=== PATIENT | male | born 1935 | race Caucasian/White ===

== ENCOUNTER 2016-08-02 12:43 | Emergency (ER) | payer MEDICARE, OTHER ==
[2016-08-02 13:31] VITALS: BP 140/76
--- NOTE | 2016-08-02 14:47 | UC ---
Respiratory Complaint HPI - HPI Summary HPI Summary: productive cough for about 10d, seems to be getting worse. Can't lie flat at night, feels like "lungs fill up". Intermittent fevers. Mild deep ST. No sinus congestion. Good appetite. No vomiting or diarrhea - History of Current Complaint Chief Complaint: UC Stated Complaint: CHEST CONGESTION Time Seen by Provider: 08/02/16 14:28 Hx Obtained From: Patient, Family/Senior Game Developer - Onset/Duration: Gradual Onset, Lasting Days - 10 Timing: Constant Severity Initially: Mild Severity Currently: Moderate Character: Sputum Description: - yellow/green Aggravating Factors: Recumbent Position Alleviating Factors: Nothing Associated Signs And Symptoms: Positive: Dyspnea, Fever, Chills, URI, Nasal Congestion, Hoarseness - Risk Factors Pulmonary Embolism Risk Factors: Negative Cardiac Risk Factors: Hypertension Pseudomonas Risk Factors: Negative Tuberculosis Risk Factors: Negative - Allergies/Home Medications Allergies/Adverse Reactions: Allergies Allergy/AdvReac Type Severity Reaction Status Date / Time Penicillins Allergy Unknown Unknown Verified 06/09/14 16:21 Reaction Details Home Medications: Home Medications Albuterol HFA INHALER* [Ventolin HFA Inhaler*] 1 - 2 puff INH Q6H PRN 08/02/16 [ History Confirmed 08/02/16] Aspirin [Aspirin Adult Low Dose] 81 mg PO DAILY 08/02/16 [History Confirmed ] Famotidine [Pepcid] 20 mg PO DAILY 08/02/16 [History Confirmed 08/02/16] PMH/Surg Hx/FS Hx/Imm Hx Cardiovascular History Of: Reports: Cardiac Disorders - pacemaker, Hypertension - Surgical History Surgical History: Yes Surgery Procedure, Year, and Place: back surgery. right shoulder surgery. bilateral knee and hip surgery - Family History Known Family History: Positive: Hypertension - Social History Occupation: Retired Lives: With Family Alcohol Use: Occasionally Alcohol Amount: 3 beers daily Substance Use Type: None Smoking Status (MU): Former Smoker When Did the Patient Quit Smoking/Using Tobacco: 16 years ago - Immunization History Most Recent Tetanus Shot: unknown Review of Systems Constitutional: Negative Skin: Negative Eyes: Negative ENT: Sore Throat Respiratory: Cough Cardiovascular: Negative Gastrointestinal: Negative Genitourinary: Negative Motor: Negative Neurovascular: Negative Musculoskeletal: Myalgia Neurological: Weakness Psychological: Negative All Other Systems Reviewed And Are Negative: Yes Physical Exam Triage Information Reviewed: Yes Appearance: Well-Appearing, No Pain Distress, Well-Nourished Vital Signs: Initial Vital Signs Temp 98.3 F 08/02/16 13:24 Pulse 87 08/02/16 13:24 Resp 16 08/02/16 13:24 BP 140/76 08/02/16 13:24 Pulse Ox 98 08/02/16 13:24 Vital Signs Reviewed: Yes Eye Exam: Normal Eyes: Positive: Conjunctiva Clear ENT: Positive: Pharynx normal, TMs normal, Muffled/hoarse voice - hoarse Neck exam: Normal Neck: Positive: Supple Respiratory Exam: Normal Cardiovascular Exam: Normal Musculoskeletal Exam: Normal Neurological Exam: Normal Psychological Exam: Normal Skin Exam: Normal UC Diagnostic Evaluation - Laboratory O2 Sat by Pulse Oximetry: 98 Respiratory Course/Dx - Differential Dx/Diagnosis Differential Diagnosis/HQI/PQRI: Bronchitis, Lower Resp Infection, Sinusitis Provider Diagnoses: bronchitis Discharge - Discharge Plan Condition: Stable Disposition: HOME Prescriptions: Azithromycin TAB* [Zithromax TAB (Z-BRYAN) 250 mg #6 tabs] 2 tab PO .TODAY, THEN 1 DAILY #1 bryan Guaifenesin-Codeine [Cheratussin AC] 1 - 2 teasp PO BEDTIME PRN #100 ml MDD 30ml PRN Reason: Cough Patient Education Materials: Upper Respiratory Infection (ED) Referrals: Beatriz Bryson [Primary Care Provider] -
== END 2016-08-02 14:54 | disposition home or self-care (01) ==
LOC: UCCORT 12:43
DX: J40 Bronchitis, not specified as acute or chronic (principal); Z88.0 Allergy status to penicillin; Z95.0 Presence of cardiac pacemaker; I10 Essential (primary) hypertension; Z79.82 Long term (current) use of aspirin; Z87.891 Personal history of nicotine dependence
CPT/HCPCS: 99212; G0463

== ENCOUNTER 2016-08-17 12:08 | Emergency (ER) | payer OTHER ==
[2016-08-17 13:41] VITALS: BP 162/85
--- NOTE | 2016-08-17 15:34 | UC ---
Respiratory Complaint HPI - HPI Summary HPI Summary: here on 08/03 with cough. Given Z-pack. Didn't help much, maybe a little. STill coughing. Coughs to the point of gagging. Hard to lie flat at night due to coughing. No fever. No vomiting. No ST or earache. Mild sinus congestion. Now sick with cough for total 24 days (3 weeks). - History of Current Complaint Chief Complaint: UCRespiratory Stated Complaint: COUGH Time Seen by Provider: 08/17/16 15:18 Hx Obtained From: Patient, Family/Paraeducator - Onset/Duration: Gradual Onset Timing: Constant Severity Initially: Mild Severity Currently: Mild Character: Cough: Nonproductive - "I can't get the phlegm up!" Alleviating Factors: OTC Meds Associated Signs And Symptoms: Positive: Dyspnea - with exertion, when cough starts "I can't catch my breath, I cough so hard", URI. Negative: Wheezing, Hemoptysis, Dizziness - Risk Factors Pulmonary Embolism Risk Factors: Negative Cardiac Risk Factors: Negative Pseudomonas Risk Factors: Negative Tuberculosis Risk Factors: Negative - Allergies/Home Medications Allergies/Adverse Reactions: Allergies Allergy/AdvReac Type Severity Reaction Status Date / Time Penicillins Allergy Unknown Unknown Verified 08/17/16 13:24 Reaction Details Home Medications: Home Medications [id number] [Mucinex Fast-Max [place] 10-650-400 mg/20Ml] 1 liq PO ONCE PRN 08/17/16 [History Confirmed 08/17/16] PMH/Surg Hx/FS Hx/Imm Hx Cardiovascular History Of: Reports: Cardiac Disorders - pacemaker, Hypertension - Surgical History Surgical History: Yes Surgery Procedure, Year, and Place: back surgery. right shoulder surgery. bilateral knee and hip surgery - Family History Known Family History: Positive: Hypertension - Social History Occupation: Retired Lives: With Family Alcohol Use: Occasionally Alcohol Amount: 3 beers daily Substance Use Type: None Smoking Status (MU): Former Smoker When Did the Patient Quit Smoking/Using Tobacco: 1960 - Immunization History Most Recent Tetanus Shot: unknown Review of Systems Constitutional: Negative Skin: Negative Eyes: Negative ENT: Negative Respiratory: Cough Cardiovascular: Negative Gastrointestinal: Negative Genitourinary: Negative Motor: Negative Neurovascular: Negative Musculoskeletal: Negative Neurological: Negative Psychological: Negative All Other Systems Reviewed And Are Negative: Yes Physical Exam Triage Information Reviewed: Yes Appearance: Well-Appearing, No Pain Distress, Well-Nourished Vital Signs: Initial Vital Signs Temp 97.6 F 08/17/16 13:27 Pulse 86 08/17/16 13:27 Resp 20 08/17/16 13:27 BP 162/85 08/17/16 13:27 Pulse Ox 99 08/17/16 13:27 Vital Signs Reviewed: Yes Eye Exam: Normal ENT Exam: Normal ENT: Positive: Pharynx normal, TMs normal, Muffled/hoarse voice - hoarse Neck exam: Normal Respiratory Exam: Normal Respiratory: Positive: Lungs clear, Normal breath sounds, No respiratory distress, No accessory muscle use - harsh, bronchospastic cough Cardiovascular Exam: Normal Musculoskeletal Exam: Normal Neurological Exam: Normal Psychological Exam: Normal Skin Exam: Normal UC Diagnostic Evaluation - Laboratory O2 Sat by Pulse Oximetry: 99 Respiratory Course/Dx - Differential Dx/Diagnosis Differential Diagnosis/HQI/PQRI: Bronchitis, Lower Resp Infection, Sinusitis Provider Diagnoses: URI Discharge - Discharge Plan Condition: Stable Disposition: HOME Prescriptions: Guaifenesin-Codeine [Cheratussin AC] 1 - 2 teasp PO Q6HR PRN #120 ml MDD 30ml PRN Reason: Cough Pseudoephedrine-Guaifenesin [Mucinex D 60-600 mg] 1 tab PO Q6HR PRN #30 tab PRN Reason: cough, congestion Patient Education Materials: Upper Respiratory Infection (ED) Referrals: Beatriz Bryson [Primary Care Provider] -
== END 2016-08-17 15:40 | disposition home or self-care (01) ==
LOC: UCCORT 12:08
DX: J06.9 Acute upper respiratory infection, unspecified (principal); Z95.0 Presence of cardiac pacemaker; Z87.891 Personal history of nicotine dependence; Z88.0 Allergy status to penicillin
CPT/HCPCS: 93005; 99212; G0463